=== PATIENT | male | born 1975 | race Two or more races ===

== ENCOUNTER 2021-02-24 12:20 | Emergency (ER) | payer OTHER ==
[~2021-02-24] VITALS: Ht 175.3 cm; Wt 83.9 kg
[2021-02-24] MEDS ORDERED: ACETAMINOPHEN 325 MG TABLET PO ONE (12:30)
[2021-02-24] MEDS ORDERED: RIVA15TA2 PO (12:46)
[2021-02-24] MEDS ORDERED: ACETAMINOPHEN 325 MG TABLET ONE (12:47)
--- NOTE | 2021-02-24 13:06 | NUR ---
Pt states he was trying to separate socket from [employer], wrench was tight and then popped off, pt hit back of right hand. Pt taking Xarelto and is concerned about possible internal bleeding in hand. Minimal pain 2/10, PMS intact, cap refill < 2 sec. Gave pt ice pack for hand.
[2021-02-24] MEDS ORDERED: ACET-2154 PO (13:30)
--- NOTE | 2021-02-24 13:40 | NUR ---
Gave pt RX and d/c instructions, pt verbalized understanding.
[2021-02-24] MEDS ORDERED: MORPHINE SULFATE 4 MG/1 ML DISP.SYRIN IV ONE (13:45)
== END 2021-02-24 13:48 | disposition home or self-care (01) ==
LOC: ER 12:25
DX: S60.221A Contusion of right hand, initial encounter (principal); W22.8XXA Striking against or struck by other objects, initial encounter; Y93.89 Activity, other specified; Y92.89 Other specified places as the place of occurrence of the external cause; R03.0 Elevated blood-pressure reading, without diagnosis of hypertension; Z86.718 Personal history of other venous thrombosis and embolism; Z79.01 Long term (current) use of anticoagulants
CPT/HCPCS: 73130; A4663

== ENCOUNTER 2021-05-04 00:16 | Emergency (ER) | payer OTHER ==
[~2021-05-04] VITALS: Ht 170.2 cm; Wt 72.6 kg
[~2021-05-04 00:16] MED LIST: ACET-2154 PO; RIVA15TA2 PO
--- NOTE | 2021-05-04 00:23 | NUR ---
Pt brought back to room 2B via walking by consulting services manager. In with pt to place in gown and on gurney and to introduce myself. Pt has great color, appearance and temp. VSS, PE WNL, mild pain 2/10. Lungs clear bilat, NSR, RRR normal s1s2 without ectopy, m/g/r, oxygenating and perfusing well. Pt states that he is otherwise completely health with no health issues what so ever. No s/sx of distress present.
--- NOTE | 2021-05-04 00:28 | NUR ---
Pt awaiting EDMD to assess condition. Pt in gown, on [facility] with site exposed and resting comfortably awaiting EDMD.
--- NOTE | 2021-05-04 00:35 | NUR ---
ED at bedside to assess pt. EDMD requested lab work from [facility], which pt had just left from because he was not happy with their care.
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
--- NOTE | 2021-05-04 01:30 | NUR ---
Pt DCed home with aftercare instructions to make an appt to see his PMD for urology referral or to contact [facility] for an in network urology referral. Pt acknowledge understanding of instructions and said he will call his PMD in the AM. Pt has great color, appearance and temp, VSS, PE WNL, oxygenating and perfusing well. Denies any pain and has no s/sx of discomfort or distress.
[2021-05-04 02:13] VITALS: BP 128/82
== END 2021-05-04 01:30 | disposition home or self-care (01) ==
LOC: ER 00:20
DX: S37.30XA Unspecified injury of urethra, initial encounter (principal); X58.XXXA Exposure to other specified factors, initial encounter; Y93.89 Activity, other specified; Y92.89 Other specified places as the place of occurrence of the external cause; Z86.718 Personal history of other venous thrombosis and embolism; Z79.01 Long term (current) use of anticoagulants
CPT/HCPCS: A4663

== ENCOUNTER 2021-06-01 01:12 | Emergency (ER) | payer SELFPAY ==
--- NOTE | 2021-06-01 01:21 | NUR ---
PATIENT WAS CALLED TO BE TRIAGED BUT WAS NOT PRESENT.
--- NOTE | 2021-06-01 01:30 | NUR ---
Patient was called to be traiged but was not present in the waiting room or outside of ER.
--- NOTE | 2021-06-01 01:58 | NUR ---
Patient was called to be traiged but was not present in the waiting room or outside of ER. Patient was not traiged or seen by ERMD.
== END 2021-06-01 02:00 | disposition left against medical advice (07) ==
LOC: ER 01:17
DX: Z53.21 Procedure and treatment not carried out due to patient leaving prior to being seen by health care provider (principal)